=== PATIENT | female | born 1995 | race Caucasian/White ===

== ENCOUNTER 2022-02-24 07:29 | Emergency (ER) | payer SELFPAY ==
[2022-02-24 07:49] VITALS: BP 126/86; PULSE 95; RESP 17; TEMP 97.8; BMI 19.8
== END 2022-02-24 08:30 | disposition home or self-care (01) ==
LOC: JERFT 07:29
DX: R05.1 Acute cough (principal); R09.81 Nasal congestion
CPT/HCPCS: 0241U-QW; 99283-25

== ENCOUNTER 2022-03-15 12:30 | Emergency (ER) | payer SELFPAY ==
[2022-03-15 12:36] VITALS: BP 124/75; PULSE 115; RESP 19; TEMP 98.5; BMI 23.1
[2022-03-15 13:42] LABS: EPI CELLS 5 /uL (0-25.1); HCG,QUALITATIVE URINE Negative; HYALINE CASTS 1 /uL (0-3.1); PH,URINE 5.5 (5.0-8.0); URINE APPEARANCE CLOUDY; URINE BILIRUBIN 1+ (NEGATIVE); URINE COLOR DK YELLOW; URINE GLUCOSE (UA) NEGATIVE (NEGATIVE); URINE KETONE NEGATIVE (NEGATIVE); URINE LEUK ESTERASE 3+ (NEGATIVE); URINE NITRITE POSITIVE (NEGATIVE); URINE PROTEIN TRACE (NEGATIVE); URINE RBC 38 /uL (0-23.9); URINE WBC 861 /uL (0-25.8)
[2022-03-15] MEDS ORDERED: cefTRIAXone SODIUM 1 GM VIAL ONE (14:01)
== END 2022-03-15 14:13 | disposition home or self-care (01) ==
LOC: JER 12:30 → JERFT 12:30
PROC: 3E023GC Introduction of Other Therapeutic Substance into Muscle, Percutaneous Approach (ICD-10-PCS; principal; 2022-03-15)
DX: N12 Tubulo-interstitial nephritis, not specified as acute or chronic (principal)
CPT/HCPCS: 81003; 84703; 87086; 87186; 99284-25

== ENCOUNTER 2022-08-08 22:11 | Emergency (ER) | payer SELFPAY ==
[2022-08-08 22:18] VITALS: BP 124/82; PULSE 90; RESP 18; TEMP 99.4; BMI 22.8
[2022-08-08] MEDS ORDERED: SODIUM CHLORIDE 0.9% 1000 ML INFUS.BAG IV ONE (23:03)
[2022-08-08] MEDS ORDERED: ACETAMINOPHEN 1000 MG/100 ML BAG IVPB ONE (23:03)
[2022-08-08] MEDS ORDERED: ACETAMINOPHEN INJECTION 100 ML IVPB ONE (23:17)
[2022-08-08 23:37] LABS: BASO % 0.5 % (0-2.0); EOS % 0.4 % (0-4.5); HEMATOCRIT 37.9 % (32.4-45.2); HEMOGLOBIN 12.7 GM/dL (10.7-15.3); LYMPH % 9.2 % (8-40); MCH 32.3 pg (25.7-33.7); MCHC 33.7 g/dl (32.0-36.0); MEAN CELL VOLUME 95.8 fl (80-96); MEAN PLT VOLUME 10.4 fl (7.5-11.1); MONO % 6.9 % (3.8-10.2); PLATELET COUNT 238 10^3/uL (134-434); RBC 3.95 M/mm3 (3.60-5.2); RDW 15.4 % (11.6-15.6); WHITE BLOOD COUNT 12.8 K/mm3 (4.0-10.0)
[2022-08-08 23:42] LABS: EPI CELLS >36 /uL (0-25.1); HYALINE CASTS 0 /uL (0-3.1); URINE APPEARANCE CLEAR; URINE BACTERIA 2068 /uL (0-1359); URINE BILIRUBIN NEGATIVE (NEGATIVE); URINE COLOR YELLOW; URINE GLUCOSE (UA) TRACE (NEGATIVE); URINE KETONE NEGATIVE (NEGATIVE); URINE LEUK ESTERASE 1+ (NEGATIVE); URINE NITRITE NEGATIVE (NEGATIVE); URINE PROTEIN 1+ (NEGATIVE); URINE RBC 17 /uL (0-23.9); URINE WBC 178 /uL (0-25.8)
[2022-08-08] MEDS ORDERED: CEFTRIAXONE 1,000 MG in DEXTROSE 5%-WATER - 50 ML IVPB ONE (23:46)
[2022-08-09] LABS: POTASSIUM 4.3 mmol/L (3.5-5.1)
[2022-08-09 00:02] LABS: CALCIUM 9.2 mg/dL (8.5-10.1)
[2022-08-09 00:03] LABS: ALBUMIN 3.6 g/dl (3.4-5.0); BLOOD UREA NITROGEN 7.6 mg/dL (7-18)
[2022-08-09 00:05] LABS: CREATININE 0.9 mg/dL (0.55-1.3)
[2022-08-09 00:07] LABS: BILIRUBIN,TOTAL 0.5 mg/dL (0.2-1); TOT PROT 8.1 g/dl (6.4-8.2)
[2022-08-09] MEDS ORDERED: CEFTRIAXONE 1 GM/50 ML BAG ONE (00:13)
== END 2022-08-09 00:51 | disposition home or self-care (01) ==
LOC: JER 22:11
PROC: 3E033GC Introduction of Other Therapeutic Substance into Peripheral Vein, Percutaneous Approach (ICD-10-PCS; principal; 2022-08-08)
PROC: 3E033NZ Introduction of Analgesics, Hypnotics, Sedatives into Peripheral Vein, Percutaneous Approach (ICD-10-PCS; 2022-08-08)
DX: N10 Acute pyelonephritis (principal); R10.11 Right upper quadrant pain
CPT/HCPCS: 36415; 80053; 81003; 83690; 84703; 85025; 87086; 87186; 99284-25